=== PATIENT | female | born 1930 | race Caucasian/White ===

== ENCOUNTER 2016-09-10 11:45 | Observation (INO) | payer OTHER, BC ==
[2016-09-10 12:18] VITALS: BMI 20.5
--- NOTE | 2016-09-10 12:24 | PDOC ---
History of Present Illness - General Chief Complaint: Injury Stated Complaint: FALL Time Seen by Provider: 09/10/16 12:08 History Source: Patient, Old Records Exam Limitations: No Limitations - History of Present Illness Initial Comments: 09/10/16 12:20 HPI: This 86-year-old female presents to the emergency room via EMS after having a unwitnessed fall at home. Apparently the home health aide found her in the bathtub. She is awake alert and oriented and states that she slipped going into the bathroom. She does not recall what time that happened. She does not recall she passed out or not. When the home health aide found her this morning she called 911 for transport. She complains of her lower sacrum area with pain. No obvious injury. She does have some small minor contractures from due to age but nothing new or acute. She is blind in one eye. Chief Compliant: Unwitnessed fall Pain location: Sacrum Duration: Unknown Modifying factors: Fall Quality: Throbbing Radiating: No Severity: Moderate to severe Time: constant PMH: Bladder cancer, CAD, hyperlipidemia, cardiac stent, hypertension, hypothyroidism FH: Pt has not recently traveled outside the country in the last 30 days. Pt has not been in contact with people who have traveled out of the country, in contact with people who have been ill with fever, n, v, d. SH: smoking use: NONE illicit drug use: NONE alcohol use: NONE employment/educational status: sexual history: PSH: Cardiac stent Home med use noted on SEP Allergies: Penicillin Immunizations: PCP: Dr. Jairo Hines Past History - Past Medical History Allergies/Adverse Reactions: Allergies Allergy/AdvReac Type Severity Reaction Status Date / Time Penicillins Allergy Unknown Verified 01/25/16 13:25 Home Medications: Ambulatory Orders Atorvastatin Ca [Lipitor] 10 mg PO DAILY 01/25/16 Hydralazine HCl [Apresoline -] 25 mg PO BID 01/25/16 Levothyroxine [Synthroid -] 50 mcg PO DAILY 01/25/16 Metoprolol Tartrate 50 mg PO DAILY 01/25/16 Anemia: Yes Asthma: No Cancer: Yes (BLADDER) Cardiac Disorders: Yes (ASHD) CVA: No COPD: No CHF: No Dementia: No Diabetes: No GI Disorders: Yes (HEMORRHOIDS, MELANOSIS, GASTROPARESIS, GASTRITIS) Disorders: No HTN: Yes Hypercholesterolemia: Yes Liver Disease: No Suicide Attempt (Hx): No Seizures: No Thyroid Disease: Yes (hypo) - Surgical History Abdominal Surgery: No Appendectomy: No Cardiac Surgery: Yes (1 stent placement) Lung Surgery: No - Immunization History Td Vaccination: Yes TDAP Vaccination: Yes Immunization Up to Date: No - Psycho/Social/Smoking Cessation Hx Anxiety: No Suicidal Ideation: No Smoking Status: No Smoking History: Never smoked Years of Tobacco Use: 0 Have you smoked in the past 12 months: No Number of Cigarettes Smoked Daily: 0 Cigars Per Day: 0 Information on smoking cessation initiated: No Hx Alcohol Use: No Drug/Substance Use Hx: No Substance Use Type: None Hx Substance Use Treatment: No Review of Systems - Review of Systems Able to Perform ROS?: Yes Comments:: 09/10/16 12:22 General statement: Fallen into the bathtub this morning without any water Hematology: neg history of bleeding/blood thinners Skin: Neg for lesions, rash, however found to have multiple bruises and states that these are not new HEENT: Neg symptoms positive blindness to one eye Respiratory: Neg SOB or difficulty in breathing Cardiac: Neg chest pain GI: Neg pain, n/v : Neg problems on voiding MS: Neg for joint pain/stiffness, no edema positive lower back pain Neuro: Neg for LOC, weakness, Endocrine: Neg for excess thirst/hunger, cold/heat intolerance, excess sweating Allergies: Positive for allergiespenicillin *Physical Exam - Vital Signs Last Vital Signs Temp Pulse Resp BP Pulse Ox 98.4 F 72 20 101/85 94 L 09/10/16 11:58 09/10/16 11:58 09/10/16 11:58 09/10/16 11:58 09/10/16 11:58 - Physical Exam Comments: 09/10/16 12:23 General Appearance: This patient appearing 86-year-old female who appears her stated age with thin skin V/S: hemodynamically stable, afebrile Skin: WNL of pt's skin color, no signs of pallor, mottling, cyanosis mild old markings noted to lower extremities and hands and arms with thin skin but no skin breakdown or skin tears Head:symmetrical Eyes: EOM's intact, PERRLA Ears: denies pain Nose: patent Throat: lips, teeth, gums, tongue, buccal mucos pink and moist Lungs: Chest symmetry equal. Cap refill <3 seconds. Lung sounds clear Cardiac: PMI at R 4MCL space, pos S1 and S2, regular rate. Abdomen: Soft, round, nontender : Not observed Muscularskeletal: Arrived via EMS no edema +PMS Neuro: AAOx3, cognitively intact, speech clear and appropriate. Heart Score/ECG Review - History History: Slightly suspicious - Electrocardiogram EKG: Non specific repolarization disturbance - Age Age: >/= 65 - Risk Factors Risk Factors Heart Score: Yes Hx Hypercholesterolemia, Yes Hx Hypertension Based on the list above the patient has:: >/=3 risk factors or Hx atherosclerotic disease - ECG Intrepretation Rhythm: Regular Rhythm - [place] Alto: Left Alto Deviation - P and OR Atrial Enlargement: Left Prominent R with upright T in V1 (true posterior VA): No Delta Wave(s) Present: No WPW: No - ST and T Non Specific ST-T Wave changes: Yes ED Treatment Course - LABORATORY CBC & Chemistry Diagram: 09/10/16 12:30 09/10/16 12:30 - RADIOLOGY Radiology Studies Ordered: Category Date Time Status CERVICAL SPINE CT W/O CONTR [CT] Stat CT Scan 09/10/16 12:[address] WITHOUT CONTRAST [CT] Stat CT Scan 09/10/16 12:15 Ordered CHEST X-RAY PORTABLE* [RAD] Stat Radiology 09/10/16 12:15 Ordered Medical Decision Making - Medical Decision Making 09/10/16 12:26 A/P 86 year old female who is thin and thin skinned who apparently fell in the bathtub (without water) sometime over night and the [facility] found her this morning AAOx3 but called 911 to help her. 1. Labs, Coags, Cardiacs 2. EKg 3. CXR 4. Head and cervical CT 5. Ua 6. FS (118) 09/10/16 15:04 Patient's chest x-ray is clear. EKG is normal sinus rhythm. Labs do show a slight arm pain and her white count of 12.8. UA is negative. Slight bump in the CK at 593. Head and cervical CT are normal UA is clean. I've spoken with Dr. Briseno regarding admitting for observation. He is covering Dr. Hines at this time. Patient is going to eat and be sent for [facility] observation. 09/10/16 16:19 I received a phone call from the radiologist reading the cervical spine. Currently the patient is a type II old untied fracture. This was not noted on in x-ray that was using comparison from 2013. When I went to go and placed the collar on the patient she stated that she had slipped at home several weeks ago and has been under the care of from neurology and wearing a collar at home however she did not have it on when she fell. Since I have nothing to compare it to until I have a consult with neurology, she will remain in stiff neck collar. Dr. Briseno made aware. *DC/Admit/Observation/Transfer Diagnosis at time of Disposition: Unwitnessed fall, Sacral back pain - Discharge Dispostion Condition at time of disposition: Guarded Admit: Yes
[2016-09-10 12:39] LABS: BASOPHIL 0.4 % (0-2.0); EOSINOPHIL 0.3 % (0-4.5); MCH 30.2 pg (25.7-33.7); MCHC 32.6 g/dl (32.0-36.0); MEAN CELL VOLUME 92.6 fl (80-96); MEAN PLT VOLUME 8.3 fl (7.5-11.1); NEUTROPHILS 86.8 % (42.8-82.8); PLATELET COUNT 250 K/MM3 (134-434); RDW 13.6 % (11.6-15.6); WHITE BLOOD COUNT 12.7 K/mm3 (4.0-10.0)
[2016-09-10 13:02] LABS: INR 0.99 (0.82-1.09); PROTHROMBIN TIME (PATIENT) 10.9 SEC (9.98-11.88)
[2016-09-10 13:04] LABS: ALBUMIN 3.8 g/dl (3.4-5.0); CALCIUM 9.7 mg/dL (8.5-10.1); CREATININE 1.1 mg/dL (0.55-1.02)
[2016-09-10 13:08] LABS: BILIRUBIN,TOTAL 0.3 mg/dL (0.2-1.0); TOT PROT 7.4 g/dl (6.4-8.2); TROPONIN I 0.05 ng/ml (0.00-0.05)
[2016-09-10 14:03] LABS: URINE APPEARANCE CLEAR; URINE BILIRUBIN NEGATIVE (NEGATIVE); URINE COLOR LTYELLOW; URINE GLUCOSE (UA) NEGATIVE (NEGATIVE); URINE KETONE NEGATIVE (NEGATIVE); URINE LEUK ESTERASE NEGATIVE (NEGATIVE); URINE NITRITE NEGATIVE (NEGATIVE); URINE UROBILINOGEN NEGATIVE E.U./dl (0.2-1.0)
[2016-09-10 14:04] LABS: URINE BLOOD 1+ (NEGATIVE); URINE PROTEIN 2+ (NEGATIVE)
[2016-09-10 14:23] LABS: URINE BACTERIA RARE /hpf (NONE SEEN); URINE RBC <1 /hpf (0-3); URINE WBC 1 /hpf (3-5)
--- NOTE | 2016-09-10 16:09 | EKG ---
Test Reason : Blood Pressure : / mmHG Vent. Rate : 079 BPM Atrial Rate : 079 BPM P-R Int : 200 ms QRS Dur : 070 ms QT Int : 380 ms P-R-T Axes : 053 -36 091 degrees QTc Int : 435 ms NORMAL SINUS RHYTHM POSSIBLE LEFT ATRIAL ENLARGEMENT LEFT AXIS DEVIATION LEFT VENTRICULAR HYPERTROPHY NONSPECIFIC ST AND T WAVE ABNORMALITY ABNORMAL ECG WHEN COMPARED WITH ECG OF 25-JAN-2016 14:11, NO SIGNIFICANT CHANGE WAS FOUND Confirmed by CHERI DUENAS MD ([id number]) on 09/10/2016 4:09:44 PM Referred By: Confirmed By:CHERI DUENAS MD
[2016-09-10] MEDS ORDERED: ACETAMINOPHEN 325 MG TABLET (FP) ONE (16:32)
--- NOTE | 2016-09-10 18:23 | HP ---
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 Patient notes that she was trying to start her shower when she lost her balance and fell into the tub and History Source: Patient, Medical Record Limitations to Obtaining History: No Limitations - Past Medical History [employer]AD[employer]ORDS SPECIALIST: Yes: Other (carotid stenosis) Cardiovascular: Yes: CAD, HTN, Hyperlipdemia, Mitral Insufficiency, Other (PVD) Reproductive: Yes: Other (fibrocystic breast disease) Heme/Onc: Yes: Anemia, Other (amyloidosis) Musculoskeletal: Yes: Other (chronic cervical spine disc disease/ spondylitis, cervical compression fractures) Rheumatology: Yes: Other (osteoporosis) Endocrine: Yes: Hypothyroidism Additional Past Medical History: dacryoadenitis of eyes, glaucoma with vision loss - Past Surgical History Past Surgical History: Yes: Hysterectomy (due to fibroids) - Smoking History Smoking history: Never smoked Have you smoked in the past 12 months: No Aproximately how many cigarettes per day: 0 - Alcohol/Substance Use Hx Alcohol Use: No - Social History Occupation: retired Other Social History: , 1 son Home Medications - Allergies Allergies/Adverse Reactions: Allergies Allergy/AdvReac Type Severity Reaction Status Date / Time Penicillins Allergy Unknown Verified 01/25/16 13:25 - Home Medications Home Medications: Ambulatory Orders Atorvastatin Ca [Lipitor] 10 mg PO DAILY 01/25/16 Hydralazine HCl [Apresoline -] 25 mg PO BID 01/25/16 Levothyroxine [Synthroid -] 50 mcg PO DAILY 01/25/16 Metoprolol Tartrate 50 mg PO BID 01/25/16 Family Disease History - Family Disease History Family Disease History: Heart Disease: Mother, Other: Son (schizophrenia, hyperlipidemia, RBBB) Review of Systems - Review of Systems Constitutional: denies: Chills, Fever, Loss of Appetite Eyes: reports: Other (chronic vision loss/ legally blind) HENT: reports: No Symptoms Neck: reports: Pain on Movement ((chronically wears neck collar)) Cardiovascular: denies: Chest Pain, Palpitations Respiratory: denies: Cough, SOB Gastrointestinal: denies: Abdominal Pain, Bloating, Diarrhea, Nausea, Vomiting Genitourinary: denies: Burning, Discharge, Dysuria Neurological: denies: Change in LOC, Dizziness Physical Examination Vital Signs: Vital Signs Temperature 98.4 F 09/10/16 11:58 Pulse Rate 72 09/10/16 11:58 Respiratory Rate 20 09/10/16 11:58 Blood Pressure 101/85 09/10/16 11:58 O2 Sat by Pulse Oximetry (%) 94 L 09/10/16 11:58 Constitutional: Yes: No Distress, Calm HENT: Yes: Atraumatic, Normocephalic Neck: Yes: Supple, Trachea Midline Cardiovascular: Yes: Regular Rate and Rhythm, S1, S2. No: Murmur Respiratory: Yes: Regular, CTA Bilaterally. No: Rales, Rhonchi, Wheezes Gastrointestinal: Yes: Normal Bowel Sounds, Soft. No: Distention, Tenderness Edema: No Neurological: No: Alert, Oriented Labs: Laboratory Tests 09/10/16 09/10/16 09/10/16 12:25 12:30 12:30 WBC 12.7 H RBC 4.88 D Hgb 14.7 D Hct 45.2 D MCV 92.6 MCHC 32.6 RDW 13.6 Plt Count 250 MPV 8.3 Neutrophils % 86.8 H Lymphocytes % 5.5 L D Monocytes % 7.0 Eosinophils % 0.3 Basophils % 0.4 INR 0.99 Sodium Potassium Chloride Carbon Dioxide Anion Gap BUN Creatinine Creat Clearance w eGFR POC Glucometer [phone] Random Glucose Lactic Acid Calcium Total Bilirubin AST ALT Alkaline Phosphatase Creatine Kinase CK-MB (CK-2) Troponin I Total Protein Albumin Urine Color Urine Appearance Urine pH Ur Specific [place] Urine Protein Urine Glucose (UA) Urine Ketones Urine Blood Urine Nitrite Urine Bilirubin Urine Urobilinogen Ur Leukocyte Esterase Urine RBC Urine WBC Urine Bacteria 09/10/16 09/10/16 09/10/16 12:30 12:30 13:50 WBC RBC Hgb Hct MCV MCHC RDW Plt Count MPV Neutrophils % Lymphocytes % Monocytes % Eosinophils % Basophils % INR Sodium 141 Potassium 3.7 Chloride 104 Carbon Dioxide 26 Anion Gap 11 BUN 48 H Creatinine 1.1 H Creat Clearance w eGFR 47.09 POC Glucometer Random Glucose 116 H Lactic Acid 1.159 Calcium 9.7 Total Bilirubin 0.3 AST 42 H D ALT 33 D Alkaline Phosphatase 95 D Creatine Kinase 593 H D CK-MB (CK-2) 15.527 H Troponin I 0.05 Total Protein 7.4 D Albumin 3.8 Urine Color Ltyellow Urine Appearance Clear Urine pH 5.0 Ur Specific [place] 1.013 Urine Protein 2+ H Urine Glucose (UA) Negative Urine Ketones Negative Urine Blood 1+ H Urine Nitrite Negative Urine Bilirubin Negative Urine Urobilinogen Negative Ur Leukocyte Esterase Negative Urine RBC <1 Urine WBC 1 Urine Bacteria Rare Imaging - Results Chest X-ray: Report Reviewed (no acute lung disease) X-ray: Report Reviewed (hip/sacrum -no gross fractures) Cat Scan: Report Reviewed (cervical spine: Type II odontoid fracture, multilevel degenerative disc disease with spondilolithesis ( disc disease similar to December,)) Problem List - Problems (1) Odontoid fracture Assessment/Plan: -Patient states fracture is old (follows with Dr Pugh of pain management/ neurology for injections), and wears cervical collar at home, but had taken it off for her shower. Will keep for observation, given fall, lives alone at home and is blind -consult Dr Pugh to comment on odontoid fracture, but keep in cervical collar for now Code(s): S12.100A - UNSP DISP FX OF SECOND CERVICAL VERTEBRA, INIT FOR CLOS FX (2) Unwitnessed fall Assessment/Plan: -fall sounds mechanical -labs unremarkable -CT head prelim reading OK Code(s): [id number] - (3) Degenerative disc disease, cervical Assessment/Plan: -as above (follows with pain management) Code(s): M50.30 - OTHER CERVICAL DISC DEGENERATION, UNSP CERVICAL REGION (4) Blind Assessment/Plan: -chronic Code(s): H54.0 - BLINDNESS, BOTH EYES (5) Hypertension Assessment/Plan: -cont antihypertensives Code(s): I10 - ESSENTIAL (PRIMARY) HYPERTENSION (6) Hyperlipidemia Assessment/Plan: -cont statin Code(s): E78.5 - HYPERLIPIDEMIA, UNSPECIFIED (7) Hypothyroidism Assessment/Plan: -cont synthroid Code(s): E03.9 - HYPOTHYROIDISM, UNSPECIFIED
[2016-09-10] MEDS: hydrALAZINE HCL 25 MG TABLET (FP) PO SCH (21:11)
[2016-09-11] MEDS: LEVOTHYROXINE NA 50 MCG TABLET (FP) PO SCH (06:06)
[2016-09-11] MEDS: ACETAMINOPHEN 325 MG TABLET (FP) PO PRN ×3 (06:15→20:41)
[2016-09-11] MEDS: METOPROLOL TARTRATE 50 MG TABLET (FP) PO SCH (11:02)
[2016-09-11] MEDS: hydrALAZINE HCL 25 MG TABLET (FP) PO SCH ×2 (11:02→21:04)
[2016-09-11] MEDS: ATORVASTATIN CA 10 MG TABLET (FP) PO SCH (11:02)
--- NOTE | 2016-09-11 16:32 | PN ---
Progress Note (short form) - Note Progress Note: NEUROSURGERY CONSULT DICTATED s/p unwitnessed fall at home. ANA found her in the bathtub. She is awake alert and oriented and states that she slipped and fell backwards in the tub. She does not recall what time that happened. She complains of her lower sacrum area with pain. Neck pain is chronic, worse last 12 months. No increasing weakness or numbness except chronic B foot numbness. PE; AF, VSS HEENT- NC/AT; Neck- in soft collar; CV- RR; Lungs- CTA B; Abd- benign; Ext- no obvious fx CN- blind OS; Motor- at least 4/5 B UE/LE; Sensation- intact LT, decreased B distal LE vibration; DTR- 2+ except diminished B ankle reflexes C spine CT 2012- Extensive spondylosis, C4-5 spondylolisthesis with foramenal stenosis; severe DDD C4-5, C5-6, C6-7;Dens cystic changes near base C spine x-rays 2016- C4-5 spondylolisthesis; extensive osteophytes and vertebral wedging C5-6-7; C1-2 complex not well visualized, no open mouth view C spine CT 2017- Similar to 2013 CT findings; calicified fracture line through base of tip of dens; further widening of predentine interval; involutional changes of dens Chronic (> 6 months but < 4 years) 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
--- NOTE | 2016-09-11 17:04 | PN ---
Progress Note, Physician Chief Complaint: Ms Armendariz says she is feeling better, having some pain in her feet however it is difficult to ascertain if this is new or chronic. She says that they started hurting after she fell, but also says that they have hurt chronically for the past 3 years. No cp, sob, n/v. - Current Medication List Current Medications: Active Medications Acetaminophen (Tylenol -) 650 mg PO Q4H PRN PRN Reason: FEVER OR PAIN Last Admin: 09/11/16 12:14 Dose: 650 mg Atorvastatin Calcium (Lipitor -) 10 mg PO DAILY [facility] Last Admin: 09/11/16 11:02 Dose: 10 mg Hydralazine HCl (Apresoline -) 25 mg PO BID [facility] Last Admin: 09/11/16 11:02 Dose: 25 mg Levothyroxine Sodium (Synthroid -) 50 mcg PO DAILY@0700 [facility] Last Admin: 09/11/16 06:06 Dose: 50 mcg Metoprolol Tartrate (Lopressor -) 50 mg PO DAILY [facility] Last Admin: 09/11/16 11:02 Dose: 50 mg - Objective Vital Signs: Vital Signs Temperature 97.6 F 09/11/16 13:48 Pulse Rate 67 09/11/16 13:48 Respiratory Rate 18 09/11/16 13:48 Blood Pressure 157/97 09/11/16 09:21 O2 Sat by Pulse Oximetry (%) 98 09/11/16 10:00 Constitutional: Yes: Well Nourished, No Distress, Calm Cardiovascular: Yes: Regular Rate and Rhythm. No: Gallop, Murmur, Rub Respiratory: Yes: Regular, CTA Bilaterally. No: Rales, Rhonchi, Wheezes Gastrointestinal: Yes: Normal Bowel Sounds, Soft. No: Distention, Tenderness Extremities: Yes: Erythema (minimal) Edema: No Labs: INR, PTT INR 0.99 (0.82-1.09) 09/10/16 12:30 Problem List - Problems (1) Unwitnessed fall Assessment/Plan: -patient slipped in the bathroom -appreciate PT assistance Code(s): [id number] - (2) Odontoid fracture Assessment/Plan: -chronic -however CT scan shows progression -appreciate neurosurgery consult -awaiting pain management consult, may need to adjust pain regimen Code(s): S12.100A - UNSP DISP FX OF SECOND CERVICAL VERTEBRA, INIT FOR CLOS FX Qualifiers: Encounter type: subsequent encounter (3) Hyperlipidemia Assessment/Plan: -continue lipitor Code(s): E78.5 - HYPERLIPIDEMIA, UNSPECIFIED (4) Hypertension Assessment/Plan: -continue lopressor and hydralazine Code(s): I10 - ESSENTIAL (PRIMARY) HYPERTENSION (5) Hypothyroidism Assessment/Plan: -continue synthroid Code(s): E03.9 - HYPOTHYROIDISM, UNSPECIFIED
--- NOTE | 2016-09-11 18:40 | CONSULT ---
Consult - text type - Consultation Consultation Note: CC: Neck pain HPI: This is an 86 yo woman previously known to me. She had presented to me after a fall a year ago and was being treated for ongoing neck pain secondary to cervical spine fractures at C5, C6. 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 She was brought to the hospital after an unwitnessed fall and was found in the bath tub several hours later. She denies any head trauma or loss of consciousness. Currently denies any significant worsening in her neck pain after the fall but reports bilateral thigh pain. She has been evaluated by Dr. Nevarez but she is not interested in a surgical intervention. PMH: HTN, legal blindness, Hyperlipidemia PE: No tenderness on palpation over the legs. Normal ROM in BUE, BLE CT C spine reveals a type II Dens fracture. X Ray Pelvis/hips/sacrum shows no fractures. A: 1. Dens Fracture 2. C5, C6 fractures with minimal retropulsion P: 1. Recommend continuing Triamcinolone 0.1% Ointment as it was helping her pain. She was also taking Flexeril 5mg BID PRN for pain. She didnt have an adequate relief with Lidocaine ointment and Voltaren gel. 2. Consider discharge on Tramadol 50mg BID, if continues to be in pain. She currently denies any significant pain. I will take her off of it when I see her at the clinic. She is not a good candidate for anything stronger given her legal blindness, advanced age and living conditions (she lives alone). 3. Thank you for the consult.
--- NOTE | 2016-09-11 21:00 | CONS ---
DATE OF CONSULTATION: DATE OF DICTATION: 09/11/2016 REQUESTING PHYSICIAN: Terrell Briseno MD CONSULTING PHYSICIAN: Hadley Barker MD, Neurosurgery. CHIEF COMPLAINT: Type 1-2 odontoid fracture. 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 Her neck pain has been more severe over the past year or so. Last year, she was diagnosed with arthritis in her neck, and has been undergoing pain management with the neurologist and pain management physician. Two days ago, she was in the bathtub and fell backwards and hit her head. She did not recall losing consciousness. She was found by her home health aide and she was sent to the emergency room by ambulance. She has been having some moderate amount of neck pain for the past year or so. She is in a soft cervical collar. She has no increasing arm weakness or numbness but has chronic numbness to bilateral feet. She denies Lhermitte sign. She has no new bowel or bladder dysfunction. There is no fever or chills. Past medical history significant for hypertension, hypercholesterolemia, hypothyroidism, chronic neck pain. Medications include Tylenol, Lopressor, hydralazine, Lipitor, and Synthroid. Allergies to PENICILLIN. In terms of social history, she does not smoke or drink. She lives at home. She is retired. Review of systems is otherwise negative for other major cardiovascular, pulmonary, gastrointestinal, genitourinary, endocrinological, neurological, or psychological problem except for the above. PHYSICAL EXAMINATION: Vital Signs: Temperature is 97.6, blood pressure 157/97, with pulse rate of 67 , O2 saturation is 98% on room air. HEENT: Normocephalic, atraumatic. Neck: Supple. She is in a soft cervical collar. Coronary: Regular rhythm. Lungs: Clear bilaterally. Abdomen: Benign. Extremities: No obvious signs of DVT. There are some chronic venous changes in the lower extremity and upper extremity. Neurologic: She is awake and alert, oriented x3. Cranial nerves examination is intact except for decreased visual acuity of her left eye. Motor examination shows at least 4/5 strength in the bilateral upper and lower extremity. Sensory examination is intact to light touch. She has decreased distal lower extremity vibratory sensation. Deep tendon reflexes are 2+ throughout except diminished bilateral ankle reflexes. Gait is not tested, for safety reasons. LABORATORIES: White blood cell count is 12.7 and hemoglobin is 14.7, platelet count 250,000, INR is 0.99. BUN 48 and creatinine 1.8, sodium 141, potassium 3.7. Creatine kinase is 593. Alkaline phosphatase is 95. Troponin is 0.05. CT scan of the head demonstrated no acute fracture or hemorrhage. There is no significant mass effect or edema or midline shift. There is moderate cerebral atrophy. There is periventricular small vessel disease. CT scan of the cervical spine was compared to a CT scan of the cervical spine from 2013. There is spondylolisthesis at C4-5 as well as mild spondylolisthesis at C6-7. There is marked degenerative disk space narrowing at C4-5, C5-6, and C6-7. There is foraminal narrowing at C4-5 secondary to spondylolisthesis and spondylosis. The prior CT scan demonstrated some cystic change at the base of the C2 vertebra near the base of the dens. The predentine interval was 1.[address] scan demonstrated a type 1-2 odontoid fracture near the base that was dense with well-corticated surfaces of the fracture. The new predentine interval is about 4 mm. There is some calcification around the fractured bone. Extensive spondylosis noted. An x-ray from 2016 demonstrated spondylolisthesis at C4-5 and marked degenerative disk disease at multiple levels. There was no open mouth odontoid view thus the dens is not well visualized. IMPRESSION: 1. Chronic type I-II odontoid fracture. 2. 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 3. Hypertension. 4. Hypercholesterolemia. 5. Hypothyroidism. RECOMMENDATIONS: The patient presents with a mechanical fall 2 days earlier, with increased neck pain. She has been experiencing increasing neck pain over the past years anyway. CT scan of cervical spine demonstrated multilevel spondylosis and marked degenerative disk disease. There is spondylolisthesis especially at C4-5 level with foraminal narrowing. That is not much of a change from a CT scan 4 years earlier. She does have a type I-II odontoid fracture. There are well- corticated fracture edges, demonstrating the fracture to be at least 6 months if not older. It is, however, less than 4 years old since this was not seen on the prior CT scan 4 years earlier. Further conservative treatment is recommended. Surgical intervention is not recommended, given the chronic nonunion of the fracture. Furthermore, she has no increased neurological deficit. The patient is not interested in surgical intervention regardless. The above was discussed with the patient at bedside. If the pain persists, further pain management and conservative management are warranted. HADLEY BARKER M.D. SHELBY/[id number] MTDD
[2016-09-12] MEDS: LEVOTHYROXINE NA 50 MCG TABLET (FP) PO SCH (06:19)
[2016-09-12] MEDS: ACETAMINOPHEN 325 MG TABLET (FP) PO PRN ×2 (06:51→10:57)
[2016-09-12 08:41] VITALS: BP 125/94
[2016-09-12] MEDS: METOPROLOL TARTRATE 50 MG TABLET (FP) PO SCH (09:15)
[2016-09-12] MEDS: ATORVASTATIN CA 10 MG TABLET (FP) PO SCH (09:16)
[2016-09-12] MEDS: hydrALAZINE HCL 25 MG TABLET (FP) PO SCH (09:16)
[2016-09-12] MEDS ORDERED: traMADol HCL 50 MG TABLET PO ONE (13:00)
[2016-09-12 14:17] VITALS: PULSE 80; TEMP 97.3
--- NOTE | 2016-09-12 16:34 | DS ---
Physical Examination Vital Signs: Vital Signs Temperature 97.3 F L 09/12/16 14:00 Pulse Rate 80 09/12/16 14:00 Respiratory Rate 20 09/12/16 14:00 Blood Pressure 125/94 09/12/16 08:40 O2 Sat by Pulse Oximetry (%) 98 09/12/16 10:00 Constitutional: Yes: Well Nourished, No Distress, Calm Cardiovascular: Yes: Regular Rate and Rhythm. No: Gallop, Murmur, Rub Respiratory: Yes: Regular, CTA Bilaterally. No: Rales, Rhonchi, Wheezes Gastrointestinal: Yes: Normal Bowel Sounds, Soft. No: Distention, Tenderness Extremities: Yes: WNL Edema: No Discharge Summary Reason For Visit: SACRAL BACK PAIN,UNWITNESSED FALL Current Active Problems Blind (Acute) Degenerative disc disease, cervical (Acute) Hyperlipidemia (Acute) Hypertension (Acute) Hypothyroidism (Acute) Odontoid fracture (Acute) Sacral back pain (Acute) Unwitnessed fall (Acute) Hospital Course: (1) Unwitnessed fall Code(s): [id number] - (2) Odontoid fracture Code(s): S12.100A - UNSP DISP FX OF SECOND CERVICAL VERTEBRA, INIT FOR CLOS FX Qualifiers: Encounter type: subsequent encounter (3) Hyperlipidemia Code(s): E78.5 - HYPERLIPIDEMIA, UNSPECIFIED (4) Hypertension Code(s): I10 - ESSENTIAL (PRIMARY) HYPERTENSION (5) Hypothyroidism Code(s): E03.9 - HYPOTHYROIDISM, UNSPECIFIED Ms Armendariz is a pleasant 86 year old female who came in with a mechanical fall. She presented with pain in her neck. CT scan revealed an odontoid fracture that was chronic but expanded. She was seen by neurosurgery and pain management. No neurosurgical intervention, pain management recommended short course of tramadol and prn flexeril. She was seen by PT and did well. She is currently safe for discharge home. Condition: Stable - Instructions Diet, Activity, Other Instructions: resume previous diet and activity. Referrals: Loretta Kelley MD [Staff Physician] - Jairo Hines MD [Staff Physician] - Disposition: [facility]/HOME HEALTH CARE - Home Medications Comprehensive Discharge Medication List: Ambulatory Orders Atorvastatin Ca [Lipitor] 10 mg PO DAILY 01/25/16 Hydralazine HCl [Apresoline -] 25 mg PO BID 01/25/16 Levothyroxine [Synthroid -] 50 mcg PO DAILY 01/25/16 Metoprolol Tartrate 50 mg PO BID 01/25/16 Flexeril 5 mg PO BID PRN #60 09/12/16 Tramadol HCl 50 mg PO BID #20 tablet MDD 100 09/12/16
== END 2016-09-12 15:21 | disposition home health service (06) ==
LOC: JER 11:45 → JERBED 15:45 → J6S 19:25
PROVIDERS: ADMIT Specialist; ATTEND Specialist
DX: S12.190A Other displaced fracture of second cervical vertebra, initial encounter for closed fracture (principal); M54.89 Other dorsalgia; I25.10 Atherosclerotic heart disease of native coronary artery without angina pectoris; I10 Essential (primary) hypertension; E78.5 Hyperlipidemia, unspecified; I49.3 Ventricular premature depolarization; I65.29 Occlusion and stenosis of unspecified carotid artery; D64.9 Anemia, unspecified; I73.89 Other specified peripheral vascular diseases; I34.0 Nonrheumatic mitral (valve) insufficiency; M50.30 Other cervical disc degeneration, unspecified cervical region; M81.8 Other osteoporosis without current pathological fracture; E03.9 Hypothyroidism, unspecified; H04.003 Unspecified dacryoadenitis, bilateral lacrimal glands; H40.89 Other specified glaucoma; H54.0 Blindness, both eyes; W18.39XA Other fall on same level, initial encounter; Y93.89 Activity, other specified; Y92.098 Other place in other non-institutional residence as the place of occurrence of the external cause
CPT/HCPCS: 36415; 70450-TC; 71010-TC; 72125-TC; 72170-TC; 72220-TC; 80053; 81003; 81015; 82550; 82553; 83605; 84484; 85025; 85610; 87086; 93005; 93010; 97116-GP; 97161-GP; 99282-25; G0378